=== PATIENT | male | born 1980 | race Caucasian/White ===

== ENCOUNTER 2021-08-03 09:27 | Day surgery (SDC) | payer OTHER ==
[~2021-08-03 09:27] MED LIST: Lactated Ringers 1,000 ML IV SCH
[2021-08-03] MEDS ORDERED: Midazolam 1 MG/ML 2 ML SDV ONE (09:47)
[2021-08-03] MEDS ORDERED: fentaNYL 100 MCG/2 ML SDV ONE (09:47)
[2021-08-03] MEDS ORDERED: Propofol 200 MG/20 ML SDV ONE ×2 (09:47→10:33)
[2021-08-03] MEDS ORDERED: Ondansetron 4 MG/2 ML SDV ONE (09:47)
[2021-08-03 12:41] VITALS: BP 111/64; PULSE 52
== END 2021-08-03 11:55 | disposition home or self-care (01) ==
LOC: MW.SDS 09:27
PROVIDERS: ATTEND Surgery
DX: Z12.11 Encounter for screening for malignant neoplasm of colon (principal); K63.5 Polyp of colon; I25.10 Atherosclerotic heart disease of native coronary artery without angina pectoris; J44.9 Chronic obstructive pulmonary disease, unspecified; G47.00 Insomnia, unspecified; E55.9 Vitamin D deficiency, unspecified; F41.9 Anxiety disorder, unspecified; Z80.0 Family history of malignant neoplasm of digestive organs; Z86.16 Personal history of COVID-19; Z79.899 Other long term (current) drug therapy; Z87.891 Personal history of nicotine dependence
CPT/HCPCS: 45380; J2250; J2405; J2704; J3010; J7120; 00812